=== PATIENT | female | born 1985 | race Caucasian/White ===

== ENCOUNTER 2019-06-07 03:07 | Emergency (ER) | payer OTHER ==
--- NOTE | 2019-06-07 03:12 | ED ---
General Adult HPI - General Stated complaint: IHS Needle Stick Time Seen by Provider: 06/07/19 03:11 Source: RN notes reviewed, old records reviewed - History of Present Illness Initial comments: 33-year-old female patient presents to ED chief complaint of chest needle stick. Patient reports that she was using a suture needle to perform procedure when she suffered a puncture wound to her left palmar ring finger. States that tet anus is up-to-date. Denies any other complaints. Systemic: Pt denies fatigue, fever/chills, rash. Pt denies weakness, night sweats, weight loss. Neuro: Pt denies headache, visual disturbances, syncope or pre-syncope. HEENT: Pt denies ocular discharge or irritation, otalgia, rhinorrhea, pharyngitis or notable lymphadenopathy. Cardiopulmonary: Pt denies chest pain, SOB, heart palpitations, dyspnea on exertion. Abdominal/GI: Pt denies abdominal pain, n/v/d. : Pt denies dysuria, burning w/ urination, frequency/urgency. Denies new onset urinary or bowel incontinence. MSK: Pt denies myalgia, loss of strength or function in extremities. Neuro: Pt denies new onset weakness, paresthesias. - Related Data Home Medications Medication Instructions Recorded Confirmed Levothyroxine Sodium [Levoxyl] 88 mcg PO DAILY 06/07/19 06/07/19 Allergies Allergy/AdvReac Type Severity Reaction Status Date / Time No Known Allergies Allergy Verified 06/07/19 03:21 Review of Systems ROS Statement: Those systems with pertinent positive or pertinent negative responses have been documented in the HPI. ROS Other: All systems not noted in ROS Statement are negative. General Exam - General Exam Comments Initial Comments: Constitutional: NAD, AOX3, Pt has pleasant affect. HEENT: NC/AT, trachea midline, neck supple, no lymphadenopathy. Posterior pharynx non erythematous, without exudates. External ears appear normal, without discharge. Mucous membranes moist. Eyes PERRLA, EOM intact. There is no scleral icterus. No pallor noted. Cardiopulmonary: RRR, no murmurs, rubs or gallops, no JVD noted. Lungs CTAB in anterior and posterior pulliam. No peripheral edema. Neuro: CN II-XII grossly intact. No nuchal rigidity. No raccon eyes, no hough sign. MSK: Full active ROM in upper and lower extremities, 5/5 stregnth. Course Vital Signs 06/07/19 03:17 Temperature 98.0 F Pulse Rate 93 Respiratory 15 Rate Blood Pressure 121/85 O2 Sat by Pulse 97 Oximetry Medical Decision Making - Medical Decision Making 33-year-old female patient presents to ED for evaluation of a chest needle stick. This is a suture needle, hollow bore. Patient felt under stable, afebrile. Physical exam displayed small puncture, vigorously irrigated by patient. Patient declines prophylaxis and tetanus. Will follow up with PCP tomorrow and will return to ED if condition worsens in anyway. Disposition Clinical Impression: Needle stick injury of finger Disposition: HOME SELF-CARE Condition: Stable Additional Instructions: Follow-up with primary care provider tomorrow. Return to ER if condition worsens in any way. Is patient prescribed a controlled substance at d/c from ED?: No Referrals: Nonstaff,Physician [Primary Care Provider] - 1-2 days
[2019-06-07 03:26] VITALS: BP 121/85; PULSE 93; RESP 15; TEMP 98
[2019-06-07 14:59] LABS: Hepatitis B Surface AB- Quant 32.9 mIU/mL; Hepatitis B Surface Antibody Reactive (Non-Reactive); Hepatitis C IgG Antibody Non-Reactive (Non-Reactive)
[2019-06-07 15:28] LABS: HIV 1 AB Non-Reactive (Non-Reactive); HIV 2 AB Non-Reactive (Non-Reactive); HIV AB P24 Non-Reactive (Non-Reactive); HIV P24 AG Non-Reactive (Non-Reactive)
== END 2019-06-07 03:44 | disposition home or self-care (01) ==
LOC: EC 03:07
DX: S61.235A Puncture wound without foreign body of left ring finger without damage to nail, initial encounter (principal); Z79.890 Hormone replacement therapy; E89.0 Postprocedural hypothyroidism; Z86.14 Personal history of Methicillin resistant Staphylococcus aureus infection; W46.0XXA Contact with hypodermic needle, initial encounter; Y93.89 Activity, other specified; Y92.234 Operating room of hospital as the place of occurrence of the external cause; Y99.0 Civilian activity done for income or pay
CPT/HCPCS: 36415; 86706; 86803; 87390; 99283

== ENCOUNTER 2019-10-22 22:27 | Inpatient (IN) | payer BC, OTHER ==
[2019-10-22] MEDS ORDERED: MORPHINE SULFATE 4 MG/ML SYRINGE IVP ONE (22:35)
[2019-10-22] MEDS ORDERED: SODIUM CHLORIDE 0.9% 1,000 ML IV STA (22:35)
[2019-10-22] MEDS ORDERED: ONDANSETRON 4 MG/2 ML VIAL IVP STA (22:36)
--- NOTE | 2019-10-22 22:57 | ED ---
General Adult HPI - General Chief complaint: Abdominal Pain Stated complaint: Flank Pain Time Seen by Provider: 10/22/19 22:42 Source: patient Mode of arrival: ambulatory Limitations: no limitations - History of Present Illness Initial comments: Dictation was produced using [employer] dictation software. please excuse any grammatical, word or spelling errors. This patient was cared for during a federal and state declared state of emergency secondary to Covid 19 Chief Complaint: 34-year-old female past medical history of nephrolithiasis, in her second trimester presents with left flank pain, nausea and vomiting History of Present Illness: 34-year-old female in her second trimester of her first presents with left-sided flank pain. Patient has a history of nephrolithiasis. Patient has nausea and vomiting. Patient has history of ureteral stents in the past. Patient states that her symptoms radiate to the left groin. Patient does take vitamins as care. The ROS documented in this emergency department record has been reviewed and confirmed by me. Those systems with pertinent positive or negative responses have been documented in the HPI. All other systems are other negative and/or noncontributory. PHYSICAL EXAM: General Impression: Alert and oriented x3, acute distress secondary to pain and nausea, pale HEENT: Normocephalic atraumatic, extra-ocular movements intact, pupils equal and reactive to light bilaterally, mucous membranes moist. Cardiovascular: Heart regular rate and rhythm Chest: Able to complete full sentences, no retractions, no tachypnea Abdomen: abdomen soft, non-tender, non-distended, no organomegaly Musculoskeletal: Pulses present and equal in all extremities, no peripheral edema Motor: no focal deficits noted Neurological: CN II-XII grossly intact, no focal motor or sensory deficits noted Skin: Intact with no visualized rashes Psych: Normal affect and mood ED course: 34 yo female presents with left-sided flank pain. She is a history of nephrolithiasis. Is upon arrival are within acceptable limits. Patient is in acute distress. Plan care bedside ultrasound was performed showing mild hydronephrosis to the left kidney. heart rate was measured at 156 using ultrasound M-mode Laboratory evaluation obtained. CBC unremarkable. Metabolic panel is negative. Urinalysis does show nitrite positive. There is also grade is 182 red blood cells and 9 white blood cells. Given positive nitrates there is concern for urinary tract infection. Patient given 1 dose of ceftriaxone. Patient given multiple rounds of analgesics and antiemetics. Abdominal bladder ultrasound was obtained formally showing left-sided hydronephrosis with multiple left-sided renal calculi. Patient still continues to be symptomatic. Patient will be admitted. Discussed patient case with urologist on-call Dr. Sanabria or will be consulted on patient. Given patient's current patient will be admitted to gynecology. Dr. Mahajan was contacted and evaluated patient at bedside and swelling to accept patients care. - Related Data Home Medications Medication Instructions Recorded Confirmed Levothyroxine Sodium [Levoxyl] 88 mcg PO DAILY 06/07/19 06/07/19 Allergies Allergy/AdvReac Type Severity Reaction Status Date / Time No Known Allergies Allergy Verified 10/22/19 22:30 Review of Systems ROS Statement: Those systems with pertinent positive or pertinent negative responses have been documented in the HPI. ROS Other: All systems not noted in ROS Statement are negative. Past Medical History Past Medical History: Thyroid Disorder Additional Past Medical History / Comment(s): kidney stones History of Any Multi-Drug Resistant Organisms: MRSA Date of last positivie culture/infection: 2018 MDRO Source:: nose Past Surgical History: Tonsillectomy Additional Past Surgical History / Comment(s): thyroidectomy Past Psychological History: No Psychological Hx Reported Smoking Status: Never smoker Past Alcohol Use History: Rare Past Drug Use History: None Reported General Exam Limitations: no limitations Course Vital Signs 10/22/19 10/22/19 22:27 23:37 Temperature 97.6 F Pulse Rate 69 63 Respiratory 16 16 Rate Blood Pressure 121/80 112/78 O2 Sat by Pulse 99 100 Oximetry Medical Decision Making - Lab Data Result diagrams: 10/22/19 22:49 10/22/19 22:49 Lab Results 10/22/19 10/22/19 10/22/19 Range/Units 22:49 22:49 22:49 WBC 8.6 (3.8-10.6) k/uL RBC 4.29 (3.80-5.40) m/uL Hgb 12.9 (11.4-16.0) gm/dL Hct 39.1 (34.0-46.0) % MCV 91.2 (80.0-100.0) fL MCH 30.2 (25.0-35.0) pg MCHC 33.1 (31.0-37.0) g/dL RDW 12.4 (11.5-15.5) % Plt Count 250 (150-450) k/uL Neutrophils % 71 % Lymphocytes % 20 % Monocytes % 5 % Eosinophils % 1 % Basophils % 0 % Neutrophils # 6.2 (1.3-7.7) k/uL Lymphocytes # 1.7 (1.0-4.8) k/uL Monocytes # 0.4 (0-1.0) k/uL Eosinophils # 0.1 (0-0.7) k/uL Basophils # 0.0 (0-0.2) k/uL Sodium 134 L (137-145) mmol/L Potassium 4.1 (3.5-5.1) mmol/L Chloride 102 (98-107) mmol/L Carbon Dioxide 24 (22-30) mmol/L Anion Gap 8 mmol/L BUN 9 (7-17) mg/dL Creatinine 0.45 L (0.52-1.04) mg/dL Est GFR (CKD-EPI)AfAm >90 (>60 ml/min/1.73 sqM) Est GFR (CKD-EPI)NonAf >90 (>60 ml/min/1.73 sqM) Glucose 92 (74-99) mg/dL Calcium 8.9 (8.4-10.2) mg/dL Urine Color Dark Brown Urine Appearance Cloudy H (Clear) Urine pH 6.0 (5.0-8.0) Ur Specific [place] 1.018 (1.001-1.035) Urine Protein Trace H (Negative) Urine Glucose (UA) Negative (Negative) Urine Ketones Negative (Negative) Urine Blood Moderate H (Negative) Urine Nitrite Positive H (Negative) Urine Bilirubin 1+ H (Negative) Urine Urobilinogen 6.0 (<2.0) mg/dL Ur Leukocyte Esterase Negative (Negative) Urine RBC >182 H (0-5) /hpf Urine WBC 9 H (0-5) /hpf Ur Squamous Epith Cells 8 H (0-4) /hpf Urine Bacteria Rare H (None) /hpf Urine Mucus Few H (None) /hpf Disposition Clinical Impression: Nephrolithiasis, Intractable pain, Intractable nausea and vomiting Disposition: ADMITTED IP TO THIS [facility] Condition: Fair Referrals: Skyler Capone DO [Primary Care Provider] - 1-2 days Decision Time: 00:04
[2019-10-22 22:59] LABS: Basophils % (A) 0 %; Eosinophils # (A) 0.1 k/uL (0-0.7); Eosinophils % (A) 1 %; HCT 39.1 % (34.0-46.0); HGB 12.9 gm/dL (11.4-16.0); Lymphocytes # (A) 1.7 k/uL (1.0-4.8); Lymphocytes % (A) 20 %; MCH 30.2 pg (25.0-35.0); MCHC 33.1 g/dL (31.0-37.0); MCV 91.2 fL (80.0-100.0); Mean Platelet Volume 7.3; Monocytes # (A) 0.4 k/uL (0-1.0); Monocytes % (A) 5 %; Neutrophils # (A) 6.2 k/uL (1.3-7.7); Neutrophils % (A) 71 %; Platelet Count 250 k/uL (150-450); RBC 4.29 m/uL (3.80-5.40); RDW 12.4 % (11.5-15.5); WBC 8.6 k/uL (3.8-10.6)
[2019-10-22 23:02] LABS: Appearance,Urine Cloudy (Clear); Bacteria,Urine Rare /hpf; Bilirubin,Urine 1+ (Negative); Blood,Urine Moderate (Negative); Color,Urine Dark Brown; Glucose,Urine (UA) Negative (Negative); Ketones,Urine Negative (Negative); Leukocyte Esterase,Urine Negative (Negative); Mucus,Urine Few /hpf; Nitrite,Urine Positive (Negative); Protein,Urine Trace (Negative); RBC,Urine >182 /hpf (0-5); Specific Gravity,Urine 1.018 (1.001-1.035); Squamous Epithelial Cell,Urine 8 /hpf (0-4); WBC,Urine 9 /hpf (0-5)
[2019-10-22 23:08] LABS: African American GFR (CKD) >90 (>60 ml/min/1.73 sqM); Anion Gap 8 mmol/L; Blood Urea Nitrogen 9 mg/dL (7-17); Calcium 8.9 mg/dL (8.4-10.2); Carbon Dioxide 24 mmol/L (22-30); Chloride 102 mmol/L (98-107); Glucose 92 mg/dL (74-99); Non-African American GFR(CKD) >90 (>60 ml/min/1.73 sqM); Potassium 4.1 mmol/L (3.5-5.1); Sodium 134 mmol/L (137-145)
[2019-10-22] MEDS ORDERED: cefTRIAXone IN SWFI 1,000 MG/10 ML SYRINGE IVP STA (23:14)
[2019-10-22] MEDS ORDERED: MORPHINE SULFATE 4 MG/ML SYRINGE IVP STA (23:27)
[2019-10-22] MEDS ORDERED: METOCLOPRAMIDE 5 MG/ML 2 ML VIAL IVP STA (23:28)
[2019-10-22] MEDS ORDERED: SODIUM CHLORIDE 0.9% 1,000 ML IV SCH (23:45)
[2019-10-22] MEDS ORDERED: ACETAMINOPHEN TAB 325 MG TAB PO PRN (23:52)
[2019-10-22] MEDS ORDERED: NALOXONE 0.4 MG/ML 1 ML VIAL IV PRN (23:52)
--- NOTE | 2019-10-22 23:59 | US ---
EXAMINATION TYPE: US kidneys/renal and bladder DATE OF EXAM: 10/22/2019 COMPARISON: NONE CLINICAL HISTORY: hydronephrosis patient with severe left flank pain, history of kidney stones. Nausea and vomiting. EXAM MEASUREMENTS: Right Kidney: 12.0 x 4.6 x 5.0 cm Left Kidney: 12.0 x 5.2 x 5.1 cm Right Kidney: No hydronephrosis or masses seen Left Kidney: mild hydro, scattered echogenic foci probable stones, larges measuring 0.7 x 0.4 x 0.7c m, cyst measuring 1.2 x 1.0 x 1.3cm Bladder: not visualized, not distended . IMPRESSION: There is left-sided hydronephrosis with multiple left-sided renal calculi. No renal atrophy.
--- NOTE | 2019-10-23 00:15 | P.HPOB ---
History of Present Illness H&P Date: 10/23/19 Chief Complaint: 19-6/7 weeks, acute nephrolithiasis The patient is a 34-year-old 1 para 0 admitted at 19-6/7 weeks by good dating parameters. She has had all of her care in [facility] and works in the emergency room as a physician. She has a remote history of nephrolithiasis and, during her shift tonight began to have significant flank pain. Workup through the emergency department demonstrates a likely stone as the patient has significant pain that waxes and wanes. With the severe pain, she also expresses significant nausea and vomiting. As result, she will be admitted for IV pain management and aggressive hydration. Urology has been contacted in consultation. There been no complications to this point. Obstetrical history: 1 para 0 with current statistics listed above. Laboratory workup and records are not available at this time and are immaterial to the current ongoing care. Gynecologic history: Unremarkable with no infections. Review of Systems Review of systems is confined to history of present illness. Past Medical History Past Medical History: Thyroid Disorder Additional Past Medical History / Comment(s): kidney stones History of Any Multi-Drug Resistant Organisms: MRSA Date of last positivie culture/infection: 2017 MDRO Source:: nose Past Surgical History: Tonsillectomy Additional Past Surgical History / Comment(s): thyroidectomy Past Psychological History: No Psychological Hx Reported Smoking Status: Never smoker Past Alcohol Use History: Rare Past Drug Use History: None Reported Medications and Allergies Home Medications Medication Instructions Recorded Confirmed Type Levothyroxine Sodium [Levoxyl] 88 mcg PO DAILY 06/07/19 06/07/19 History Allergies Allergy/AdvReac Type Severity Reaction Status Date / Time No Known Allergies Allergy Verified 10/22/19 22:30 Exam Vital Signs Temp Pulse Resp BP Pulse Ox 10/22/19 23:37 63 16 112/78 100 10/22/19 22:27 97.6 F 69 16 121/80 99 Intake and Output 10/22/19 10/22/19 10/23/19 14:59 22:59 06:59 Other: Weight 59.874 kg In general, this is a well-developed, well-nourished white female in some discomfort. Her heart has a regular rhythm and rate without murmur. Her lungs are clear to auscultation bilaterally in all pulliam. Her abdomen is nondistended, gravid, has normal active bowel sounds, soft, nontender, and without any palpable masses. She does have fairly significant left flank pain to palpation. Her extremities are without any cyanosis, clubbing, or edema and are nontender to palpation. Digital cervical examination is deferred. Results Result Diagrams: 10/22/19 22:49 10/22/19 22:49 Abnormal Lab Results - Last 24 Hours (Table) 10/22/19 10/22/19 Range/Units 22:49 22:49 Sodium 134 L (137-145) mmol/L Creatinine 0.45 L (0.52-1.04) mg/dL Urine Appearance Cloudy H (Clear) Urine Protein Trace H (Negative) Urine Blood Moderate H (Negative) Urine Nitrite Positive H (Negative) Urine Bilirubin 1+ H (Negative) Urine RBC >182 H (0-5) /hpf Urine WBC 9 H (0-5) /hpf Ur Squamous Epith Cells 8 H (0-4) /hpf Urine Bacteria Rare H (None) /hpf Urine Mucus Few H (None) /hpf Assessment and Plan (1) Intractable pain Status: Acute Code(s): R52 - PAIN, UNSPECIFIED SNOMED Code(s): 82990702 (2) Nephrolithiasis Status: Acute Code(s): N20.0 - CALCULUS OF KIDNEY SNOMED Code(s): 97104851 Plan: The patient is to be admitted for aggressive rehydration and pain management. A Dilaudid SORTING GRAPPLE OPERATOR will be ordered and she will have a IV fluid bolus followed by rehydration at 125 mL/h. Zofran will be ordered for nausea. As noted in history of present illness, urology is aware of consult. Urine will be strained. She otherwise can have bedrest with bathroom privileges and clear liquids as tolerated. We will Doppler heart tones daily.
[2019-10-23] MEDS ORDERED: HYDROmorphone 1 MG/ML 1 ML SYRINGE IVP STA ×2 (00:20→23:50)
[2019-10-23] MEDS: HYDROmorphone PCA 10 MG/50 ML BAG IV PRN (01:23)
[2019-10-23] MEDS: LACTATED RINGERS 1,000 ML IV ONE ×2 (01:23→09:10)
[2019-10-23] MEDS: ONDANSETRON 4 MG/2 ML VIAL IVP PRN ×4 (05:16→23:36)
[2019-10-23] MEDS ORDERED: ONDANSETRON 4 MG/2 ML VIAL IVP PRN (09:23)
--- NOTE | 2019-10-23 10:51 | P.PN ---
Subjective Progress Note Date: 10/23/19 Principal diagnosis: 20-0/7 weeks, left nephrolithiasis, acute pain The patient reports that her pain continues to be significant though it does wax and wane to some extent. When she has significant pain, she also expresses fairly significant nausea and is unable to tolerate solids by mouth. She tolerates liquids by mouth until the acute pain returns at which time she vomits . She does report that she is urinating on a regular basis. She denies any current concerns. Objective - Vital Signs Vital signs: Vital Signs Temp 98.3 F 10/23/19 09:32 Pulse 71 10/23/19 09:32 Resp 18 10/23/19 09:32 BP 112/71 10/23/19 09:32 Pulse Ox 97 10/23/19 09:32 Intake & Output 10/22/19 10/23/19 10/23/19 18:59 06:59 18:59 Output Total 300 Balance -300 Weight 59.874 kg Output: Emesis 300 Other: # Voids 1 # Bowel Movements 0 - Exam In general, this is a well-developed, well-nourished white female in some di scomfort. Her heart has a regular rhythm and rate without murmur. Her lungs are clear to auscultation bilaterally in all pulliam. Her abdomen is gravid with fundal height appropriate level for 20 weeks of gestation. There is no abdominal tenderness or masses aside from uterine fundus. Her extremities are without any cyanosis, clubbing, or edema and are nontender to palpation bilaterally. Left flank tenderness remains present similar to last evening. - Labs CBC & Chem 7: 10/22/19 22:49 10/22/19 22:49 Labs: Abnormal Lab Results - Last 24 Hours (Table) 10/22/19 10/22/19 Range/Units 22:49 22:49 Sodium 134 L (137-145) mmol/L Creatinine 0.45 L (0.52-1.04) mg/dL Urine Appearance Cloudy H (Clear) Urine Protein Trace H (Negative) Urine Blood Moderate H (Negative) Urine Nitrite Positive H (Negative) Urine Bilirubin 1+ H (Negative) Urine RBC >182 H (0-5) /hpf Urine WBC 9 H (0-5) /hpf Ur Squamous Epith Cells 8 H (0-4) /hpf Urine Bacteria Rare H (None) /hpf Urine Mucus Few H (None) /hpf Assessment and Plan (1) Intractable pain Current Visit: No Status: Acute Code(s): R52 - PAIN, UNSPECIFIED SNOMED Code(s): 90879892 (2) Nephrolithiasis Current Visit: No Status: Acute Code(s): N20.0 - CALCULUS OF KIDNEY SNOMED Code(s): 32636603 Plan: Continue IV hydration with IV pain control. We will continue to strain the urine and await passage of the kidney stone. Urology has seen the patient and is in agreement with the plan is is currently outlined. At this time will avoid any imaging studies or potential operative interventions.
[2019-10-23] MEDS: LEVOTHYROXINE 88 MCG TAB PO SCH (11:50)
--- NOTE | 2019-10-23 13:26 | P.GSCN ---
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 Approximately 8 PM she developed pain in her left flank and the pain rapidly intensified over the next hour to hour and a half. She was on her way to the emergency room and was evaluated when she arrived. She has a history of urolithiasis and a renal ultrasound was obtained which showed mild left hydronephrosis. There also appeared to be a 4 x 7 mm calculus in the left midportion of the kidney. The left ureter was not visualized. The patient continued to have pain coupled with nausea and vomiting and was admitted to the labor and delivery floor by Dr. Mahajan as she is approximately 21 weeks . She continued to have intermittent nausea and vomiting associated with colicky left-sided flank pain. She has remained afebrile. She has had no further episodes of gross hematuria. She says that she is normally voiding every 3 hours during the day and every 3 hours at night due to her stage of and this pattern has not changed recently. She denies any increased urgency to void. The patient has a history of calcium oxalate urolithiasis. She says she is undergone 2 previous ESWL treatments but could not recall the side. She said that she had a double-J catheter 12 years ago. She last had problems from a stone 8 years ago. She does not have a history of recurrent urinary tract infections and has had no recent fever or chills. Review of Systems - Constitutional Denies chills, Denies fever - Cardiovascular Denies high blood pressure, Denies palpitations, Denies shortness of breath - Respiratory Denies wheezing - Gastrointestinal Reports as per HPI, Denies constipation, Denies heartburn - Genitourinary Genitourinary: Reports as per HPI Past Medical History Past Medical History: Thyroid Disorder Additional Past Medical History / Comment(s): kidney stones History of Any Multi-Drug Resistant Organisms: MRSA Year Discovered:: 2018 MDRO Source:: nose Past Surgical History: Tonsillectomy Additional Past Surgical History / Comment(s): thyroidectomy Past Anesthesia/Blood Transfusion Reactions: No Reported Reaction Past Psychological History: No Psychological Hx Reported Smoking Status: Never smoker Past Alcohol Use History: Rare Past Drug Use History: None Reported - Past Family History Mother Family Medical History: No Reported History Medications and Allergies Home Medications Medication Instructions Recorded Confirmed Type Levothyroxine Sodium [Levoxyl] 88 mcg PO DAILY 06/07/19 10/23/19 History Pnv No.95/Ferrous Fum/Folic AC 1 tab PO ONCE 10/23/19 10/23/19 History [ Multivitamin Tablet] Allergies Allergy/AdvReac Type Severity Reaction Status Date / Time No Known Allergies Allergy Verified 10/22/19 22:30 Surgical - Exam Vital Signs Temp Pulse Resp BP Pulse Ox 97.6 F 69 16 121/80 99 10/22/19 22:27 10/22/19 22:27 10/22/19 22:27 10/22/19 22:27 10/22/19 22:27 - General well developed, well nourished, moderate distress - ENT no hearing loss - Neck no masses, no lymphadectomy - Respiratory normal respiratory effort - Abdomen Abdomen: soft, tender (Left flank-mild), no organomegaly, masses (Mid to lower abdominal mass consistent with gravid uterus), no guarding Results - Labs 10/22/19 22:49 10/22/19 22:49 Abnormal Lab Results - Last 24 Hours (Table) 10/22/19 10/22/19 Range/Units 22:49 22:49 Sodium 134 L (137-145) mmol/L Creatinine 0.45 L (0.52-1.04) mg/dL Urine Appearance Cloudy H (Clear) Urine Protein Trace H (Negative) Urine Blood Moderate H (Negative) Urine Nitrite Positive H (Negative) Urine Bilirubin 1+ H (Negative) Urine RBC >182 H (0-5) /hpf Urine WBC 9 H (0-5) /hpf Ur Squamous Epith Cells 8 H (0-4) /hpf Urine Bacteria Rare H (None) /hpf Urine Mucus Few H (None) /hpf Diabetes panel 10/22/19 Range/Units 22:49 Sodium 134 L (137-145) mmol/L Potassium 4.1 (3.5-5.1) mmol/L Chloride 102 (98-107) mmol/L Carbon Dioxide 24 (22-30) mmol/L BUN 9 (7-17) mg/dL Creatinine 0.45 L (0.52-1.04) mg/dL Glucose 92 (74-99) mg/dL Calcium 8.9 (8.4-10.2) mg/dL Calcium panel 10/22/19 Range/Units 22:49 Calcium 8.9 (8.4-10.2) mg/dL Pituitary panel 10/22/19 Range/Units 22:49 Sodium 134 L (137-145) mmol/L Potassium 4.1 (3.5-5.1) mmol/L Chloride 102 (98-107) mmol/L Carbon Dioxide 24 (22-30) mmol/L BUN 9 (7-17) mg/dL Creatinine 0.45 L (0.52-1.04) mg/dL Glucose 92 (74-99) mg/dL Calcium 8.9 (8.4-10.2) mg/dL Adrenal panel 10/22/19 Range/Units 22:49 Sodium 134 L (137-145) mmol/L Potassium 4.1 (3.5-5.1) mmol/L Chloride 102 (98-107) mmol/L Carbon Dioxide 24 (22-30) mmol/L BUN 9 (7-17) mg/dL Creatinine 0.45 L (0.52-1.04) mg/dL Glucose 92 (74-99) mg/dL Calcium 8.9 (8.4-10.2) mg/dL - Imaging US - kidney/bladder: image reviewed Assessment and Plan (1) Hydronephrosis concurrent with and due to calculi of kidney and ureter Narrative/Plan: The patient's history is consistent with acute left ureteral colic related to passage of a calculus from the left kidney into the left ureter. The patient has no previous imaging for comparison at this facility. In view of the patient's at least initially conservative treatment with analgesics and antiemetics along with hydration is reasonable. If the patient continues to have intractable pain then it may be reasonable to consider a KUB however it would be preferable to defer this due to her stage of . The patient will be reevaluated tomorrow. Current Visit: Yes Status: Acute Code(s): N13.2 - HYDRONEPHROSIS WITH RENAL AND URETERAL CALCULOUS OBSTRUCTION SNOMED Code(s): 411479466
[2019-10-23] MEDS: LACTATED RINGERS 1,000 ML IV SCH ×2 (17:00→18:26)
[2019-10-24] MEDS: HYDROmorphone PCA 10 MG/50 ML BAG IV PRN ×2 (00:56→16:03)
[2019-10-24] MEDS: LACTATED RINGERS 1,000 ML IV SCH ×3 (02:41→19:28)
[2019-10-24] MEDS: ONDANSETRON 4 MG/2 ML VIAL IVP PRN (05:51)
--- NOTE | 2019-10-24 08:12 | P.PN ---
Subjective Progress Note Date: 10/24/19 Dr. Camarillo is 20 weeks . She is in the hospital for left ureteral colic consistent with the ureteral stone. She does have a history of stones. No x-rays have been done. Her pain is fluctuating. She was good although yesterday but had pain again last night. Based on her symptomatology the stone appears to have moved distally. She is having a lot of lower urinary tract symptoms as of late. She continues to want to try to pass this spontaneously. We'll continue to follow with you. I suspect based on her symptoms she will hopefully pass a relatively soon. Objective - Vital Signs Vital signs: Vital Signs Temp 97.9 F 10/24/19 01:16 Pulse 65 10/24/19 01:16 Resp 16 10/24/19 01:16 BP 105/65 10/24/19 01:16 Pulse Ox 98 10/24/19 01:16 Intake & Output 10/23/19 10/24/19 10/24/19 18:59 06:59 18:59 Output Total 500 900 Balance -500 -900 Output: Urine 900 Emesis 500 Other: # Voids 1 1 # Bowel Movements 0 - Labs CBC & Chem 7: 10/22/19 22:49 10/22/19 22:49
--- NOTE | 2019-10-24 10:14 | P.PN ---
Subjective Progress Note Date: 10/24/19 Principal diagnosis: 20 weeks intrauterine , nephrolithiasis, acute pain The patient reports that she had a regional afternoon yesterday with no pain for approximate 6-8 hours after which time the pain recurred significantly. She does report that the pain has moved lower and that she is now experiencing more significant urgency indicating that perhaps the stone has moved to near the ureterovesical junction. She does continue to have significant nausea and vomiting and is unable to keep liquids down for any length of time. She does not feel that she could be managed with oral pain medications at this time. Objective - Vital Signs Vital signs: Vital Signs Temp 98.2 F 10/24/19 08:00 Pulse 82 10/24/19 08:00 Resp 16 10/24/19 08:00 BP 91/64 10/24/19 08:00 Pulse Ox 99 10/24/19 08:00 Intake & Output 10/23/19 10/24/19 10/24/19 18:59 06:59 18:59 Output Total 500 900 Balance -500 -900 Output: Urine 900 Emesis 500 Other: # Voids 1 1 1 # Bowel Movements 0 - Exam In general, this is a well-developed, well-nourished white female in no acute distress at this time. Her flank pain remains similar but has moved lower and more to the lateral and anterior portion consistent with movement of the stone. Her sugars have no cyanosis, clubbing, or edema and are nontender to palpation bilaterally. - Labs CBC & Chem 7: 10/22/19 22:49 10/22/19 22:49 Assessment and Plan (1) Intractable pain Current Visit: No Status: Inactive Code(s): R52 - PAIN, UNSPECIFIED SNOMED Code(s): 36536184 (2) Nephrolithiasis Current Visit: No Status: Inactive Code(s): N20.0 - CALCULUS OF KIDNEY SNOMED Code(s): 94992283 Plan: Continue IV hydration with IV pain control using the WINDOWS SERVER ARCHITECT. We do await passage of the stone at which time her pain should resolve entirely and she can be discharged. We will insure that she tolerates regular diet prior to discharge as well. Appreciate urology continuing to follow with us.
--- NOTE | 2019-10-24 15:44 | P.PN ---
Progress Note - Text Progress Note Date: 10/24/19 I spoke with the patient this afternoon and se is experiencing more pain SHe might want to do something for this If she continues with pain I will consoder a diagnostic and therapeutic left. ureteroscopy under anesthesia tomorrow. We discussed xrays , tents as well as a nephrostomy tube. Given her history of stones, description of pain, hematuria and hydronephrosis on us on the left I believe that if the pain persists the best treatment would be to do a flexible ureteroscopy and laser litho to the highly probable left ureteral stone. This has been discussed with the patient
[2019-10-25] MEDS: LACTATED RINGERS 1,000 ML IV SCH ×2 (03:32→19:43)
[2019-10-25] MEDS: LEVOTHYROXINE 88 MCG TAB PO SCH (07:20)
--- NOTE | 2019-10-25 07:21 | P.PN ---
Subjective Progress Note Date: 10/25/19 The patient is 20 weeks . 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 She has had persistent colic on the left side consistent with a stone. She has large volume microscopic hematuria and left-sided hydronephrosis on ultrasound. This is all consistent with left ureteral c alculus. We again discussed surgical manipulation. She wishes to proceed with that. She will be scheduled for a left ureteroscopy with stone manipulation under anesthesia later today Objective - Vital Signs Vital signs: Vital Signs Temp 98.2 F 10/24/19 23:43 Pulse 79 10/24/19 23:43 Resp 16 10/24/19 23:43 BP 104/71 10/24/19 23:43 Pulse Ox 97 10/24/19 23:43 Intake & Output 10/24/19 10/25/19 10/25/19 18:59 06:59 18:59 Other: # Voids 1 - Labs CBC & Chem 7: 10/22/19 22:49 10/22/19 22:49
--- NOTE | 2019-10-25 08:47 | P.PN ---
Subjective Progress Note Date: 10/25/19 Principal diagnosis: 20 weeks intrauterine , nephrolithiasis, acute pain Patient continues to have waxing and waning significant left flank pain with urgency consistent with a stone transiting the ureter on the left. She has continued to be unable to tolerate anything by mouth and her pain is continuing to be controlled with a CLIENT SERVICE SUPERVISOR. She has agreed to ureteroscopy with the removal of the stone later today. Objective - Vital Signs Vital signs: Vital Signs Temp 98.2 F 10/25/19 08:00 Pulse 87 10/25/19 08:00 Resp 17 10/25/19 08:00 BP 112/66 10/25/19 08:00 Pulse Ox 98 10/25/19 08:00 Intake & Output 10/24/19 10/25/19 10/25/19 18:59 06:59 18:59 Other: # Voids 1 - Exam Patient is a well-developed well-nourished white female in minimal distress at this moment. Her flank pain remains consistent with no other physical findings of any kind. Essentially unchanged from previous days. - Labs CBC & Chem 7: 10/22/19 22:49 10/22/19 22:49 Assessment and Plan (1) Intractable pain Current Visit: No Status: Inactive Code(s): R52 - PAIN, UNSPECIFIED SNOMED Code(s): 98648351 (2) Nephrolithiasis Current Visit: No Status: Inactive Code(s): N20.0 - CALCULUS OF KIDNEY SNOMED Code(s): 78935906 Plan: Urology note indicates the plan is for ureteroscopy with removal of the stone later this afternoon or possible lithotripsy. Should she have immediate relief of her pain, we will advance her diet and likely discharge her home. Of course, should she pass the stone and her pain immediately improved, she will also be discharged home. Continue to follow closely and continue with hydration.
[2019-10-25] MEDS ORDERED: LIDOCAINE 1% INJ 10MG/ML (20 ML MDV) ONE (20:50)
[2019-10-25] MEDS ORDERED: PROPOFOL 10 MG/ML 20 ML VIAL IV ONE (20:50)
[2019-10-25] MEDS ORDERED: PHENYLEPHRINE-0.9% NACL SYG 1 MG/10 ML SYRINGE ONE (20:50)
[2019-10-25] MEDS ORDERED: SUCCINYLCHOLINE CHLORIDE 100 MG/5 ML SYR IV ONE (20:50)
[2019-10-25] MEDS ORDERED: fentaNYL (PF) 50 MCG/ML 2 ML AMP ONE (20:50)
[2019-10-25] MEDS ORDERED: LACTATED RINGERS 1,000 ML IV ONE (20:52)
[2019-10-25] MEDS ORDERED: SODIUM CHLORIDE 0.9% 50 ML with ceFAZolin 2,000 MG IV ONE ×2 (21:02)
--- NOTE | 2019-10-25 21:37 | P.OP ---
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 She is 20 weeks . She presented to the emergency room severe left-sided colic consistent with a stone. She had marked hematuria. An ultrasound showed some left [place]. She is seen in consultation and her pain persisted. We discussed treatment options and decided proceed with left ureteroscopy. I will not use any imaging of at all possible. Description of Procedure: The patient is brought to the operating suite. She is given a general e ndotracheal anesthesia. She's placed lithotomy position with sterile prep and drape. Cystoscopy Foroblique lens and 21-Syriac sheath identifies a normal urethra. The bladder mucosa is unremarkable. The left ureteral orifice is edematous consistent with an intramural stone. The ureteral orifice is too tight to pass the scope. I thus passed an 8 cone-tip catheter to dilate the ureteral orifice. I then pass the semirigid mini ureteroscope into the left ureter. The stone was seen. With the 275 laser probe the stone is dusted into small fragments and flushed out of the ureter. Elect not to leave a stent. The bladder is drained stone fragment is sent to pathology. The patient is awake and returned recovery in good condition. She'll be discharged home upon recovery. Blood loss is negligible
[2019-10-25 21:48] VITALS: RESP 16
[2019-10-25 23:39] VITALS: TEMP 98
[2019-10-25 23:50] VITALS: BP 101/65; PULSE 80
--- NOTE | 2019-10-26 08:35 | P.DS ---
Providers Date of admission: 10/22/19 23:52 Expected date of discharge: 10/25/19 Attending physician: Zander Mahajan Consults: 10/22/19 23:54 Consult Physician Routine Consulting Provider: Kraig Sanabria Consult Reason/Comments: kidney stone Do you want consulting provider notified?: Already Contacted Primary care physician: Skyler Capone - Discharge Diagnosis(es) (1) Intractable pain Status: Inactive (2) Nephrolithiasis Status: Inactive Hospital Course: The patient is a 34-year-old 1 para 0 admitted through the emergency room with acute onset of left renal colic and a history of nephrolithiasis. Imaging demonstrates what is almost certainly a stone in the ureter. 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 She was admitted for IV pain control and aggressive hydration. Urology was consulted. After several days of hydration with an inability for the patient tolerated anything by mouth, the option was provided to her to perform left ureteroscopy with laser lithotripsy to which she agreed. The procedure was und ertaken yesterday and performed without complications. The patient had significant an immediate relief and requested discharge. She was discharged home to follow-up with her primary hvac technician residential in the next several days to week. She was instructed to call for any increasing pain or any other concerns. There were no concerns throughout the entire hospital stay. She was discharged home on hospital day #4. Procedures: #1. IV hydration #2. IV pain control #3. Left ureteroscopy with laser lithotripsy Patient Condition at Discharge: Good Plan - Discharge Summary New Discharge Prescriptions: New Acetaminophen with Codeine [Tylenol w/codeine #3] 1 tab PO Q6H PRN 3 Days #12 tab PRN Reason: Pain No Action Levothyroxine Sodium [Levoxyl] 88 mcg PO DAILY Pnv No.95/Ferrous Fum/Folic AC [ Multivitamin Tablet] 1 tab PO ONCE Discharge Medication List Levothyroxine Sodium [Levoxyl] 88 mcg PO DAILY 06/07/19 [History] Pnv No.95/Ferrous Fum/Folic AC [ Multivitamin Tablet] 1 tab PO ONCE 10/23/19 [History] Acetaminophen with Codeine [Tylenol w/codeine #3] 1 tab PO Q6H PRN 3 Days #12 tab 10/25/19 [Rx] Follow up Appointment(s)/Referral(s): Skyler Capone DO [Primary Care Provider] - 1-2 days Patient Instructions/Handouts: *Surgery [facility] - (Anesthesia) Discharge Instructions Outpatient Surgery, Lithotripsy (DC) Discharge Disposition: HOME SELF-CARE
== END 2019-10-25 23:55 | disposition home or self-care (01) | DRG 670 ==
LOC: EC 22:27 → 4FBP 23:52
PROVIDERS: ADMIT Obstetrics & Gynecology; ATTEND Obstetrics & Gynecology
PROC: 0TC78ZZ Extirpation of Matter from Left Ureter, Via Natural or Artificial Opening Endoscopic (ICD-10-PCS; principal; 2019-10-25 09:00)
DX: N13.2 Hydronephrosis with renal and ureteral calculous obstruction (principal); O99.89 Other specified diseases and conditions complicating pregnancy, childbirth and the puerperium; O99.282 Endocrine, nutritional and metabolic diseases complicating pregnancy, second trimester; Z3A.20 20 weeks gestation of pregnancy; E89.0 Postprocedural hypothyroidism; Z11.59 Encounter for screening for other viral diseases; Z79.890 Hormone replacement therapy; Z87.442 Personal history of urinary calculi; Z86.14 Personal history of Methicillin resistant Staphylococcus aureus infection; Z90.89 Acquired absence of other organs
CPT/HCPCS: 36415; 76770; 80048; 81001; 82365; 85025; 96361; 96374; 96375; 96376; 99285

== ENCOUNTER → 2021-03-25 | Outpatient (CLI) | payer OTHER | END | disposition home or self-care (01) | LOC: LABWHC1 22:03 | PROVIDERS: ATTEND Emergency Medicine | DX: Z20.822 Contact with and (suspected) exposure to COVID-19 (principal) | CPT/HCPCS: 87635 ==